=== PATIENT | female | born 1965 | race Caucasian/White ===

== ENCOUNTER 2016-10-22 07:45 | Outpatient (CLI) | payer BC | END 2016-10-22 07:46 | disposition home or self-care (01) | LOC: MADLAB 07:45 | DX: N81.4 Uterovaginal prolapse, unspecified (principal); R32 Unspecified urinary incontinence ==

== ENCOUNTER 2019-03-17 20:08 | Emergency (ER) | payer BC ==
--- NOTE | 2019-03-17 20:41 | RAD ---
XR Foot Rt 3 View STANDARD: 03/17/2019 8:17 PM CLINICAL INDICATION: Pain COMPARISON: None. FINDINGS: Fracture:No fracture. Arthropathy:Mild degenerative change. Calcaneal enthesophytes. Incidental findings:None of significance. IMPRESSION: 1. No acute osseous abnormality.
--- NOTE | 2019-03-17 20:47 | RAD ---
XR Foot Lt 3 View STANDARD: 03/17/2019 8:17 PM CLINICAL INDICATION: Pain COMPARISON: None. FINDINGS: Fracture:No fracture. Arthropathy:Mild degenerative change. Calcaneal enthesophytes are present. Bipartite tibial great toe sesamoid. Incidental findings:None of significance. IMPRESSION: 1. No acute osseous abnormality.
== END 2019-03-17 21:30 | disposition home or self-care (01) ==
LOC: MADERS 20:08
DX: S90.31XA Contusion of right foot, initial encounter (principal); S90.32XA Contusion of left foot, initial encounter; V03.90XA Pedestrian on foot injured in collision with car, pick-up truck or van, unspecified whether traffic or nontraffic accident, initial encounter